=== PATIENT | male | born 1960 | race African-American/Black ===

== ENCOUNTER 2017-01-27 02:31 | Emergency (ER) | payer SELFPAY ==
[2017-01-27] MEDS ORDERED: Adacel (T-DAP) 0.5 ML VIAL ONE (03:00)
[2017-01-27] MEDS ORDERED: Bacitracin Zinc 1 Packet ONE (03:33)
--- NOTE | 2017-01-27 08:28 | RAD ---
RADIOGRAPH RIGHT LEG TIBIA AND FIBULA 2 VIEWS: Date: 01/27/17 HISTORY: 56-year-old male status post puncture wound to the right leg from dog bite. Rule out foreign body. FINDINGS: No definite radiopaque foreign body is identified. The tibia and fibula are intact with no evidence of fracture. IMPRESSION: Negative. POS: [facility]
== END 2017-01-27 03:45 | disposition home or self-care (01) ==
LOC: NAV ERS 02:31
DX: S81.851A Open bite, right lower leg, initial encounter (principal); Z23 Encounter for immunization; W54.0XXA Bitten by dog, initial encounter
CPT/HCPCS: 90471; 90715

== ENCOUNTER 2019-11-25 00:31 | Emergency (ER) | payer SELFPAY ==
[2019-11-25] MEDS ORDERED: Morphine 2 MG/ML SYRINGE ONE ×3 (01:05→02:59)
[2019-11-25 01:35] LABS: ALT (SGPT) 16 U/L (8-55); AST (SGOT) 10 U/L (5-34); Albumin 3.6 g/dL (3.5-5.0); Alkaline Phosphatase 79 U/L (40-110); Anion Gap 12 mmol/L (10-20); BUN (Urea Nitrogen) 12 mg/dL (8.4-25.7); Bilirubin, Total 0.1 mg/dL (0.2-1.2); CK (CPK) 95 U/L (30-200); Calc. Creatinine Clearance 0 mL/min (70-130); Calcium 9.3 mg/dL (7.8-10.44); Carbon Dioxide 26 mmol/L (22-29); Chloride 101 mmol/L (98-107); Estimated GFR-MDRD Greater than 90; Globulin 3.5 g/dL (2.4-3.5); Glucose 106 mg/dL (70-105); Potassium 4.1 mmol/L (3.5-5.1); Protein, Total 7.1 g/dL (6.0-8.3); Sodium 135 mmol/L (136-145)
[2019-11-25 01:36] LABS: Band 5 % (5-11); Eosinophils 6 % (0-10); Hemoglobin 12.4 g/dL (14.0-18.0); Lymphocytes 15 % (21-51); MDiff Complete? YES; Mean Corpuscular Hemoglobin 29.2 pg (27.0-31.0); Mean Corpuscular Volume 94.2 fL (78.0-98.0); Mean Platelet Volume 8.6 fL (7.4-10.4); Monocytes 9 % (0-10); Neutrophil 65 % (42-75); Platelet Count 210 thou/uL (130-400); Platelet Morphology Comment Appears Adequate; RBC Distribution Width 12.3 % (11.5-14.5); RBC Morphology Normal; Red Blood Cell (RBC) Count 4.24 mill/uL (4.70-6.10); White Blood Cell (WBC) Count 7.1 thou/uL (4.8-10.8)
[2019-11-25] MEDS ORDERED: Aspirin 325 MG TAB ONE (03:25)
[2019-11-25] MEDS ORDERED: Cyclobenzaprine 10 MG TAB ONE (03:29)
--- NOTE | 2019-11-25 07:27 | RAD ---
CHEST 1 VIEW: Date: 11/25/2019 INDICATION: Chest pain. COMPARISON: Prior exam dated 02/17/09. FINDINGS: Chronic lung changes are stable. Mild cardiomegaly is present. There are linear opacities involving b oth lower lobes that may reflect a component of subsegmental atelectasis or scar. No pleural effusion or pneumothorax evident. No consolidation is evident. No acute osseous abnormality is noted. IMPRESSION: 1. Chronic lung changes. 2. Bibasilar atelectasis or scar. POS: [facility]
--- NOTE | 2019-11-25 08:35 | CT ---
PRELIMINARY REPORT/[facility]/EMERGENCY AFTER HOURS PROCEDURE: EXAM: CTA Neck with Intravenous Contrast. CLINICAL HISTORY: C/O severe neck pain, patient says that he started to feel poorly on about one hour after smokin g crack cocaine. He began to get headache, right sided neck pain, and chest pains. He has been having the chest pain on and off, and head/neck have hurt since that time. TECHNIQUE: Axial CTA images of the neck performed with intravenous contrast. MIP reconstructed images were creat ed and reviewed. Note: Per PQRS, the description of internal carotid artery percent stenosis, including 0 percent or n ormal exam, is based on [place] Symptomatic Carotid Endarterectomy Trial (NASCET) criteria. CONTRAST: With; Isovue 370 total of 147ml, had to scan twice, pt could not tolerate pain & IV began to leak COMPARISON: None provided. FINDINGS: Common and internal carotid arteries: No stenosis by NASCET criteria. No dissection or occlusion. External carotid arteries: Patent. Vertebral arteries: No significant stenosis. No dissection or occlusion. Veins: Diminutive proximal left internal jugular vein. Soft tissues: No acute finding. No masses or lymphadenopathy. Bones: No acute osseous abnormality. IMPRESSION: 1. Unremarkable CTA of the neck. No arterial stenosis or occlusion. 2. Diminutive proximal left internal jugular vein which is of unclear clinical significance and may be chronic or congenital. ELECTRONICALLY SIGNED BY: Kvng Roman M.D. Nov 25, 2019 3:36:05 AM OFFICE MESSENGER This report is intended for review by the ordering physician only, in accordance of law. If you recei ve this report in error, please call [facility] at [phone]. FINAL REPORT EMERGENCY AFTER HOURS CT ANGIO NECK: I agree with the preliminary report provided by [facility]. No definite acute arterial stenosis, occlusion, or aneurysmal formation demonstrated. There is a dimi nutive appearance with limited opacification of left internal jugular vein from skull base through mi d neck, which may reflect a congenital diminutive left internal jugular or possibly sequelae of chron ic occlusion. POS: [facility]
[2019-11-25] MEDS ORDERED: Iopamidol 370 76% 100 ML VIAL ONE (09:00)
== END 2019-11-25 12:54 | disposition short-term general hospital (02) ==
LOC: NAV ERS 00:31
DX: R07.9 Chest pain, unspecified (principal); M54.2 Cervicalgia
CPT/HCPCS: 36415; 70498; 71045; 80053; 82550; 84484; 85025; 93005; 96374; 96376; J2270; Q9967